=== PATIENT | female | born 1970 | race Caucasian/White ===

== ENCOUNTER 2016-12-19 18:41 | Emergency (ER) | payer SELFPAY ==
[~2016-12-19] VITALS: Ht 175.3 cm; Wt 71.3 kg
[~2016-12-19 18:41] MED LIST: ACID CONTROL150 MG PO; ASPIR-LOW81 MG PO; CARAFATE100 MG/ML PO; CIPRO500 MG PO; FLOMAX0.4 MG PO; FUROSEMIDE20 MG PO; HYDROCODON-ACE1 EAC7 PO; NAPROSYN500 MG PO; NO HOME MEDS; ZOFRAN ODT4 MG PO
[2016-12-19 19:14] LABS: HEMATOCRIT 42.3 % (36.0-46.0); MCHC 34.8 G/DL (30.0-36.0); MCV 95.1 FL (83-99); MEAN PLAT.VOLUME 10.2 uM^3 (9.5-12.4); PLATELET COUNT 221 K/uL (156-360); RBC DIS.WIDTH-SD 42.6 % (39-53); RED BLOOD COUNT 4.45 M/uL (3.80-5.20); WHITE BLOOD COUNT 8.4 K/uL (4.1-10.2)
[2016-12-19 19:32] LABS: CHLORIDE 104 mEq/L (99-109); POTASSIUM 3.6 mEq/L (3.7-5.4); SODIUM 139 mEq/L (136-147)
[2016-12-19 19:33] LABS: GLUCOSE 98 mg/dL (70-99)
[2016-12-19 19:35] LABS: ANION GAP 14 MEQ/L (2-14)
[2016-12-19 19:37] LABS: GFR ESTIMATE (CALCULATED) > 59 mL/min/
[2016-12-19 19:38] LABS: UREA NITROGEN (BUN) 13 mg/dL (9-23)
[2016-12-19 19:41] LABS: TROP-I INTERPRETATION NEGATIVE; TROPONIN-I < 0.01 ng/mL (0.0-0.30)
[2016-12-19 22:27] LABS: TROP-I INTERPRETATION NEGATIVE; TROPONIN-I < 0.01 ng/mL (0.0-0.30)
[2016-12-19 22:47] VITALS: BP 107/63
== END 2016-12-19 23:17 | disposition home or self-care (01) ==
LOC: EME 18:41
PROVIDERS: Emergency Medicine; Physician Assistant
DX: R07.9 Chest pain, unspecified (principal); I50.9 Heart failure, unspecified; I25.2 Old myocardial infarction; Z87.442 Personal history of urinary calculi; Z88.0 Allergy status to penicillin
CPT/HCPCS: 71020; 80048; 83880; 84484; 85027; 93005; 99281; 99285; J1940

== ENCOUNTER 2017-05-08 06:07 | Emergency (ER) | payer SELFPAY ==
[~2017-05-08] VITALS: Ht 175.3 cm; Wt 92.9 kg
[2017-05-08] MEDS ORDERED: MOBIC7.5 MG PO (08:53)
[2017-05-08] MEDS ORDERED: NORCO 5/3251 TABLET PO (08:53)
[2017-05-08 09:47] VITALS: BP 120/67
== END 2017-05-08 10:22 | disposition home or self-care (01) ==
LOC: EME 06:07
DX: M70.71 Other bursitis of hip, right hip (principal); I50.9 Heart failure, unspecified; I25.2 Old myocardial infarction; Z79.82 Long term (current) use of aspirin; Z88.0 Allergy status to penicillin
CPT/HCPCS: 73502; 99281; 99285

== ENCOUNTER 2017-05-13 02:53 | Emergency (ER) | payer OTHER ==
[~2017-05-13] VITALS: Ht 175.3 cm; Wt 94.8 kg
[~2017-05-13 02:53] MED LIST changes: +MOBIC7.5 MG PO; +NORCO 5/3251 TABLET PO
[2017-05-13] MEDS ORDERED: PERCOCET 5/31 TABLET PO (04:11)
[2017-05-13] MEDS ORDERED: MEDROL DOSEPAK4 MG PO (04:11)
[2017-05-13 04:22] VITALS: BP 110/64
== END 2017-05-13 04:24 | disposition home or self-care (01) ==
LOC: EME 02:53
DX: M70.61 Trochanteric bursitis, right hip (principal); Z88.0 Allergy status to penicillin
CPT/HCPCS: 99281; 99284; J3010; J7512

== ENCOUNTER 2017-05-15 12:29 | Emergency (ER) | payer OTHER ==
[~2017-05-15] VITALS: Ht 175.3 cm; Wt 93.8 kg
[~2017-05-15 12:29] MED LIST changes: +MEDROL DOSEPAK4 MG PO; +PERCOCET 5/31 TABLET PO
[2017-05-15 14:57] LABS: BASOPHIL (%) 0.3 % (0-1); EOSINOPHIL (%) 0.7 % (0-5); EOSINOPHIL COUNT 0.1 K/uL (0-0.3); HEMATOCRIT 39.2 % (36.0-46.0); HEMOGLOBIN 13.2 G/DL (11.9-15.5); IMMATURE GRANULOCYTE (%) 0.4 % (0.0-0.7); LYMPHOCYTE (%) 15.5 % (15-42); LYMPHOCYTE COUNT 2.1 K/uL (1.0-2.8); MCH 32.6 PG (29.0-34.0); MCHC 33.7 G/DL (30.0-36.0); MCV 96.8 FL (83-99); MONOCYTE COUNT 1.4 K/uL (0-0.8); NEUTROPHIL (%) 73.1 % (45-76); NEUTROPHIL COUNT 9.9 K/uL (1.8-6.4); PLATELET COUNT 247 K/uL (156-360); RBC DIS.WIDTH-CV 12.5 % (11.8-14.6); RBC DIS.WIDTH-SD 44.7 % (39-53); RED BLOOD COUNT 4.05 M/uL (3.80-5.20); WHITE BLOOD COUNT 13.5 K/uL (4.1-10.2)
[2017-05-15 15:25] LABS: CHLORIDE 105 MEQ/L (99-109); CREATININE 0.7 MG/DL (0.6-1.3); GFR ESTIMATE (CALCULATED) > 59 mL/min/; GLUCOSE 96 mg/dL (70-99); POTASSIUM 4.4 MEQ/L (3.7-5.4); SODIUM 138 MEQ/L (136-147); UREA NITROGEN (BUN) 17 mg/dL (9-23)
[2017-05-15 16:01] LABS: ERTH.SED.RATE 26 MM/HR (0-20)
[2017-05-15 17:06] VITALS: BP 160/85
== END 2017-05-15 17:06 | disposition home or self-care (01) ==
LOC: EME 12:29
PROVIDERS: Emergency Medicine
DX: M25.551 Pain in right hip (principal); I50.9 Heart failure, unspecified; I25.2 Old myocardial infarction; Z88.0 Allergy status to penicillin
CPT/HCPCS: 73721; 80048; 85025; 85652; 86140; 99281; 99283; J2270

== ENCOUNTER 2017-07-29 10:43 | Day surgery (SDC) | payer OTHER ==
[~2017-07-29] VITALS: Ht 175.3 cm; Wt 94.8 kg
[~2017-07-29 10:43] MED LIST changes: +IRON325 M1 PO; +PROVERA,CYCRIN10 MG PO; +VITAMIN C1000 MG PO
[2017-07-29 11:10] VITALS: BP 110/64
[2017-07-29 15:15] VITALS: BP 124/69
[2017-07-29 16:00] VITALS: BP 121/61
== END 2017-07-29 16:17 | disposition home or self-care (01) ==
LOC: SDC 10:43
PROVIDERS: Obstetrics & Gynecology
DX: N84.0 Polyp of corpus uteri (principal); E66.9 Obesity, unspecified; Z68.33 Body mass index [BMI] 33.0-33.9, adult; Z82.0 Family history of epilepsy and other diseases of the nervous system; Z82.49 Family history of ischemic heart disease and other diseases of the circulatory system
CPT/HCPCS: 81025; 88305; J0131; J1100; J1170; J1885; J2250; J2405; J3010

== ENCOUNTER 2017-11-11 11:46 | Emergency (ER) | payer OTHER ==
[~2017-11-11] VITALS: Ht 175.3 cm; Wt 95.6 kg
[2017-11-11] MEDS ORDERED: NAPROXEN500 MG PO (13:40)
[2017-11-11] MEDS ORDERED: ULTRAM50 MG PO (13:40)
[2017-11-11 13:53] VITALS: BP 124/83
== END 2017-11-11 13:53 | disposition home or self-care (01) ==
LOC: EME 11:46
DX: M65.4 Radial styloid tenosynovitis [de Quervain] (principal); Z88.0 Allergy status to penicillin
CPT/HCPCS: 73110; 73130; 99281; 99283